=== PATIENT | male | born 1950 | race Caucasian/White ===

== ENCOUNTER 2021-04-01 19:42 | Emergency (ER) | payer MEDICARE ==
[2021-04-01] MEDS ORDERED: EPINEPHrine 1 MG/ML SDV IM ONE (19:52)
[2021-04-01] MEDS ORDERED: Dexamethasone 4 MG/ML SDV IVPUSH ONE (19:52)
[2021-04-01] MEDS ORDERED: Dexamethasone 4 MG/ML SDV ONE (20:03)
--- NOTE | 2021-04-01 21:15 | EDM.PDOC ---
ED HPI GENERAL MEDICAL PROBLEM - General Chief Complaint: Bite:Animal, Insect Stated Complaint: ALERGIC REACTION BEE Time Seen by Provider: 04/01/21 19:52 Source of Information: Reports: Patient, Other (Family friend who is an steel pan form placing supervisor in [place]) History Limitations: Reports: No Limitations - History of Present Illness INITIAL COMMENTS - FREE TEXT/NARRATIVE: Isaías is a 71-year-old male presenting to the ED with acute anaphylactic reaction to multiple stings. The patient was near a wood pile that may have had paper wasps in it. One stung him on the ankle and then several others stung him one on the face involving the upper lip and the other on the left wrist. The patient had acute onset of facial swelling, tongue swelling, shortness of breath, wrist and ankle swelling. He does have a history of allergic reaction to stings in the past. He does carry an EpiPen, however, it in 2003. The patient did take a full dose of Silvia and his friend who is an steel pan form placing supervisor gave him diphenhydramine 50 mg p.o. The patient was brought in because of the increasing swelling of the face and tongue with worry about impending airway. Currently the patient is breathing fine without any stridor. He denies any difficulty swallowing. He has very significant swelling of the face and upper lip. He does have moderate tongue swelling. He also has moderate swelling on the left forearm and left ankle. 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 04/01/21 19:54 Shock peanut Allergy Abdominal Verified 04/01/21 19:57 Pain Home Meds: Home Meds EPINEPHrine [Epipen 2-Anson] 0.3 mg IJ ASDIRECTED PRN #2 auto.injct 04/01/21 [Rx] EPINEPHrine [Epipen 2-Anson] 1 injection SQ ASDIRECTED 04/01/21 [History] amLODIPine [Norvasc] 5 mg PO DAILY 04/01/21 [History] lisinopriL [Lisinopril] 10 mg PO DAILY 04/01/21 [History] predniSONE [Prednisone] 40 mg PO ASDIRECTED PRN #10 tablet 04/01/21 [Rx] predniSONE [Prednisone] 40 mg PO ASDIRECTED PRN #4 tablet 04/01/21 [Rx] Past Medical History Cardiovascular History: Reports: Hypertension Musculoskeletal History: Reports: Fracture - Past Surgical History HEENT Surgical History: Reports: Oral Surgery, Tonsillectomy GI Surgical History: Reports: Colonoscopy, Hernia Repair/Other Social & Family History - Tobacco Use Tobacco Use Status *Q: Never Tobacco User ED ROS GENERAL - Review of Systems Review Of Systems: See Below HEENT: Reports: Throat Swelling, Other (Facial swelling) Respiratory: Reports: Shortness of Breath Cardiovascular: Reports: Chest Pain (Chest pressure), Palpitations Endocrine: Reports: No Symptoms GI/Abdominal: Reports: No Symptoms : Reports: No Symptoms Musculoskeletal: Reports: No Symptoms Skin: Reports: Other (Swelling of the face, lips, tongue and throat) Neurological: Reports: No Symptoms Psychiatric: Reports: Anxiety Hematologic/Lymphatic: Reports: No Symptoms Immunologic: Reports: Anaphylaxis ED EXAM, ANIMAL BITE - Physical Exam Exam: See Below Exam Limited By: No Limitations General Appearance: Alert, Anxious, Mild Distress Eye Exam: Bilateral Eye: EOMI, PERRL Nose: Normal Inspection, Normal Mucosa Throat/Mouth: Other (Tongue swelling) Head: Facial Swelling (Pronounced facial swelling involving the upper lip and bilateral cheeks) Neck: Normal Inspection Respiratory/Chest: No Respiratory Distress, Lungs Clear, Normal Breath Sounds. No: Wheezing, Stridor Cardiovascular: Normal Peripheral Pulses, Regular Rate, Rhythm, No Murmur Peripheral Pulses: 2+: Radial (L), Radial (R) GI/Abdominal: Normal Bowel Sounds, Soft, Non-Tender Extremities: Other (Swelling over the medial distal forearm on the left with erythema and edema. Swelling of the lateral left ankle with erythema and edema) Neurological: Alert, Oriented, Normal Cognition, No Motor/Sensory Deficits Psychiatric: Anxious Skin Exam: Other (Erythema and edema involving the upper lip, bilateral cheeks, medial distal left forearm, and lateral left ankle secondary to envenomation.) Lymphatic: No Adenopathy Course - Vital Signs Last Recorded V/S: Last Vital Signs Temp 36.3 C 04/01/21 20:46 Pulse 75 04/01/21 20:46 Resp 12 04/01/21 20:46 BP 157/87 H 04/01/21 20:46 Pulse Ox 93 L 04/01/21 20:46 - Orders/Labs/Meds Meds: Medications Discontinued Medications Generic Name Dose Route Start Last Admin Trade Name Freq PRN Reason Stop Dose Admin Dexamethasone 10 mg 04/01/21 19:52 04/01/21 20:01 Dexamethasone 4 Mg/Ml Sdv IVPUSH 04/01/21 19:53 10 mg ONETIME ONE Administration Dexamethasone Confirm 04/01/21 20:03 04/01/21 20:07 Dexamethasone 4 Mg/Ml Sdv Administered 04/01/21 20:04 Not Given Dose 8 mg .ROUTE .STK-MED ONE Epinephrine HCl 0.5 mg 04/01/21 19:52 04/01/21 19:59 Epinephrine 1 Mg/Ml Sdv IM 04/01/21 19:53 0.5 mg ONETIME ONE Administration - Re-Assessments/Exams Free Text/Narrative Re-Assessment/Exam: 04/01/21 21:30 the patient arrived to the ED after receiving a full dose of Silvia and diphenhydramine 50 mg p.o. He is having significant swelling of the face and tongue as well as localized swelling from the envenomations. Appears he was stung by at least 3 paper wasps. He is starting to experience some difficulty with breathing but denies any difficulty with swallowing. The patient received epinephrine 0.5 mg IM and dexamethasone 10 mg IV push. He was observed for an hour and a half with significant improvement. At this time I believe he suitable for discharge home. He should continue the diphenhydramine as needed. I did prescribe him an EpiPen x2 as well as prednisone 40 mg as needed at the onset of his sting. Indications return to the ED were discussed. The patient's friend who is an steel pan form placing supervisor will observe him tonight for any recurrence. Departure - Departure Time of Disposition: 21:13 Disposition: Home, Self-Care 01 Clinical Impression: Anaphylaxis Qualifiers: Encounter type: initial encounter Qualified Code(s): T78.2XXA - Anaphylactic shock, unspecified, initial encounter Wasp sting-induced anaphylaxis Qualifiers: Encounter type: initial encounter Injury intent: accidental or unintentional Qualified Code(s): T63.461A - Toxic effect of venom of wasps, accidental (unintentional), initial encounter - Discharge Information Prescriptions: EPINEPHrine [Epipen 2-Anson] 0.3 mg IJ ASDIRECTED PRN #2 auto.injct PRN Reason: Allergies predniSONE [Prednisone] 40 mg PO ASDIRECTED PRN #4 tablet PRN Reason: Allergies predniSONE [Prednisone] 40 mg PO ASDIRECTED PRN #10 tablet PRN Reason: Allergies Instructions: Anaphylactic Reaction, Adult, Bee, Wasp, or Hornet Sting, Adult Referrals: PCP,None [Primary Care Provider] - Forms: ED Department Discharge Care Plan Goals: I am glad to see that should continue to improve. I anticipate that this will take 12 to 24 hours to fully resolve. You may continue to take Benadryl as needed. I have prescribed a dual pack of EpiPen's and prednisone 40 mg to be taken at the onset of the sting in the future. Keep these on hand when you are outdoors. You may also want to consider wearing a high DEET content insect repellent as this will lessen the likelihood of getting stung. Always remember that white vinegar (acetic acid) if applied quickly can neutralize the toxin and reduce the reaction. Sepsis Event Note (ED) - Evaluation Sepsis Screening Result: No Definite Risk - Focused Exam Vital Signs: Vital Signs Temp Pulse Resp BP Pulse Ox 04/01/21 20:46 36.3 C 75 12 157/87 H 93 L 04/01/21 20:10 36.0 C L 68 20 176/108 H 97 - Problem List & Annotations (1) Anaphylaxis SNOMED Code(s): 74222694 Code(s): T78.2XXA - ANAPHYLACTIC SHOCK, UNSPECIFIED, INITIAL ENCOUNTER Status: Acute Priority: High Current Visit: Yes Qualifiers: Encounter type: initial encounter Qualified Code(s): T78.2XXA - Anaphylactic shock, unspecified, initial encounter (2) Wasp sting-induced anaphylaxis SNOMED Code(s): 031699604 Code(s): T63.461A - TOXIC EFFECT OF VENOM OF WASPS, ACCIDENTAL, INIT Status: Acute Priority: High Current Visit: Yes Qualifiers: Encounter type: initial encounter Injury intent: accidental or unintentional Qualified Code(s): T63.461A - Toxic effect of venom of wasps, accidental (unintentional), initial encounter - Problem List Review Problem List Initiated/Reviewed/Updated: Yes
== END 2021-04-01 21:28 | disposition home or self-care (01) ==
LOC: JP.ED 19:42
DX: T63.461A Toxic effect of venom of wasps, accidental (unintentional), initial encounter (principal); I10 Essential (primary) hypertension; Z91.010 Allergy to peanuts; Z91.030 Bee allergy status
CPT/HCPCS: 96372; 96374; 99284; J0171; J1100